=== PATIENT | male | born 1970 | race Caucasian/White ===

== ENCOUNTER 2017-04-06 10:21 | Emergency (ER) | payer OTHER ==
[~2017-04-06] VITALS: Ht 162.6 cm; Wt 79.4 kg
[~2017-04-06 10:21] MED LIST: CHILD IBUP100 MG/5 M PO; TAMIFLU75 M1 PO
--- NOTE | 2017-04-06 11:52 | ED INFLUENZA/URI COMPLAINT ---
History of Present Illness General Chief Complaint: General Adult Stated Complaint: COUGH POS FLU Source: patient Exam Limitations: no limitations Vital Signs & Intake/Output Vital Signs & Intake/Output Vital Signs Date Time Temp Pulse Resp B/P B/P Pulse O2 O2 Flow FiO2 Mean Ox Delivery Rate 04/06 1455 98.7 78 18 120/73 97 Room Air Room Air 04/06 1323 97.9 65 18 129/70 98 Room Air 04/06 1225 99 04/06 1056 98.1 60 18 123/78 96 Room Air Allergies Coded Allergies: NO KNOWN ALLERGIES (02/08/13) Reconcile Medications Albuterol Sulfate (Proair Hfa) 90 MCG HFA.AER.AD 2 PUF INH Q4-6 PRN PRN COUGH/ SOB Azithromycin (Zithromax) 250 MG TABLET 1 DP PO AD BRONCHITIS 2 the first day followed by 1 for days 2-5 Codeine Phosphate/Guaifenesi (Cheratussin AC Syrup) 10 MG-100 MG/5 ML LIQUID 10 ML PO Q6H PRN COUGH Ibuprofen (Child Ibuprofen) 100 MG/5 ML ORAL.SUSP 30 ML PO TID FEVER Methylprednisolone. (Medrol) 4 MG TAB.DS.PK 1 DP PO AD BRONCHITIS 6 on day 1 then reduce by one tablet daily until gone Oseltamivir Phosphate (Tamiflu) 75 MG CAPSULE 1 CAP PO BID FLU Triage Note: PT COMPLAINS OF COUGH AND UNABLE TO BREATHE , STATES THAT HE WAS HERE SUNDAY AND DX WITH FLU, BUT THAT HE STILL HAS NON PRODUCTIVE COUGH Triage Nurses Notes Reviewed? yes Onset: Abrupt Duration: week(s): (1.5), constant, continues in ED, getting worse Timing: single episode today Severity: moderate, severe Prior Episodes/Possible Cause: no prior episodes No Modifying Factors: none Associated Symptoms: cough, nasal congestion, nasal drainage, shortness of breath, sore throat, wheezing HPI: 47-year-old male with no past medical history presents for evaluation of cough, sore throat, body aches and fever. Patient states that he was seen here several days ago and diagnosed with influenza. He was treated with Tamiflu. He states that his symptoms have persisted. He states he now has a sore throat and cough productive of yellow sputum. He states that the cough is making it difficult for him to sleep. He still has body aches but no more fever. He has been able to eat and drink. No chest pain shortness of breath hemoptysis lower extremity edema abdominal pain nausea vomiting diarrhea. He does not smoke no history of COPD or asthma. No dizziness or lightheadedness. Past History Travel History Traveled to [place] past 21 day No Medical History Any Pertinent Medical History? see below for history Neurological: NONE EENT: NONE Cardiovascular: NONE Respiratory: NONE Gastrointestinal: NONE Hepatic: NONE Renal: NONE Musculoskeletal: NONE Psychiatric: NONE Endocrine: NONE Blood Disorders: NONE Cancer(s): NONE TECHNICIAN BIOLOGICAL HEALTH/Reproductive: NONE Tetanus Vaccine: 02/08/13 Surgical History Surgical History: non-contributory Psychosocial History What is your primary language Serbian Tobacco Use: Never used ETOH Use: denies use Illicit Drug Use: denies illicit drug use Family History Hx Contributory? No Review of Systems Review of Systems Constitutional: Reports: malaise. EENTM: Reports: nasal congestion, throat pain. Respiratory: Reports: cough, short of breath, sputum production. Cardiovascular: Reports: no symptoms. GI: Reports: no symptoms. Genitourinary: Reports: no symptoms. Musculoskeletal: Reports: no symptoms. Skin: Reports: no symptoms. Neurological/Psychological: Reports: no symptoms. Hematologic/Endocrine: Reports: no symptoms. Immunologic/Allergic: Reports: no symptoms. All Other Systems: Reviewed and Negative Physical Exam Physical Exam General Appearance: well developed/nourished, no apparent distress, alert, awake Head: atraumatic, normal appearance Eyes: Bilateral: normal appearance, PERRL, EOMI. Ears, Nose, Throat: moist mucous membrane, hearing grossly normal, nasal congestion, nasal drainage (clear), throat is clear Neck: normal inspection, supple, full range of motion Respiratory: chest non-tender, no respiratory distress, wheezing (mild) Cardiovascular: regular rate/rhythm, normal peripheral pulses Peripheral Pulses: 2+ radial (R), 2+ radial (L) Gastrointestinal: soft, non-tender Back: normal inspection, normal range of motion Extremities: normal inspection, normal range of motion Neurologic/Psych: no motor/sensory deficits, awake, alert, oriented x 3 Skin: intact, normal color, warm/dry Core Measures Sepsis Present: No Sepsis Focused Exam Completed? No Progress Differential Diagnosis: influenza, otitis, pneumonia, pharyngitis, sinusitis, acute bronchitis Plan of Care: Orders Procedure Date/time Status XRY-CHEST XRAY, TWO VIEWS 04/06 1058 Active pt seen and evaluated. he has mild wheezing bilaterally. no distress or hypoxia. \he is afebrile and apears clinically well. chest x-ray clear. pt will be treated with proair, z-pack, medrol dose ack and chertussin. follow up with pcp. discussed return precautions in detail. return to the ed with any concerns follow up with pcp. Diagnostic Imaging: Viewed by Me: Radiology Read. Discussed w/RAD: Radiology Read. CXR Impression: PATIENT: SABRINA FRIAS PRESENT AGE: 47 PATIENT ACCOUNT NO: [id number] : 70 LOCATION: [facility] ORDERING PHYSICIAN: Zeb Bailey DO SERVICE DATE: 04/06/17 EXAM TYPE: RAD - XRY-CHEST XRAY, TWO VIEWS EXAMINATION: XR CHEST CLINICAL INFORMATION: Cough/flu COMPARISON : None TECHNIQUE: 2 views of the chest were obtained. FINDINGS: Cardiac silhouette is normal in size. Lungs are well aerated. No lobar consolidation. No gross pleural effusion. No pneumothorax. No acute osseous abnormality. IMPRESSION: No acute cardiopulmonary pathology. DICTATED BY: Chris Santos MD DATE/TIME DICTATED:04/06/171199 ESTHETICIAN SPA:RACHEL DATE/TIME TRANSCRIBED:04/06/171199 CONFIDENTIAL, DO NOT COPY WITHOUT APPROPRIATE AUTHORIZATION. Initial ED EKG: none Departure Departure Disposition: HOME OR SELF CARE Condition: Stable Clinical Impression Primary Impression: Acute bronchitis Qualifiers: Bronchitis organism: unspecified organism Qualified Code: J20.9 - Acute bronchitis, unspecified Referrals: Mary Rhodes MD (PCP/Family) Additional Instructions: Rest and drink plenty of fluids. Tylenol ibuprofen for pain. Take antibiotics and steroids as directed for the full course. Pro-air inhaler can be used every 4-6 hours as needed for cough or shortness of breath. Cheratussin can be use as needed for cough at nighttime only this may cause drowsiness. Use over-the- counter Mucinex or Robitussin for cough during the day. Follow-up with her primary care doctor this week. Monitor symptoms return with any concerns. Please go over all results of today's visit with your primary care doctor. Contact your primary care doctor to let them know you were here in the emergency room. There may be nonspecific findings which may not be related to your visit today here in the emergency room but may require further evaluation and chronic monitoring by your primary care doctor. If you had a laceration today the chance of foreign body always remains. You should follow-up with your primary care doctor for recheck in 3-5 days for a wound check. If you had an x-ray done there is a chance that a fracture could have been missed on initial read and you should follow-up with your primary care doctor for repeat x-rays if symptoms persist. If your blood pressure was elevated here in the emergency room please have rechecked by her primary care doctor within the next 48 hours by your primary care doctor. If you were prescribed a narcotic here in the emergency room or any type of controlled substances you're not allowed to drive while taking this medication or operate any type of heavy machinery. Narcotics can make you feel lightheaded dizziness nausea and can cause constipation. You may need to picker tender helper a stool softener. Thank you for choosing [facility] emergency room. Please return to the emergency room immediately if you have any other concerns worsening of symptoms. Departure Forms: Customer Survey General Discharge Information Prescriptions: Current Visit Scripts Methylprednisolone. (Medrol) 1 DP PO AD #1 DP 6 on day 1 then reduce by one tablet daily until gone Albuterol Sulfate (Proair Hfa) 2 PUF INH Q4-6 PRN PRN COUGH/SOB #1 INHAL Azithromycin (Zithromax) 1 DP PO AD #6 TAB 2 the first day followed by 1 for days 2-5 Codeine Phosphate/Guaifenesi (Cheratussin AC Syrup) 10 ML PO Q6H PRN COUGH #240 ML
--- NOTE | 2017-04-06 14:37 | RADIOLOGY REPORT ---
EXAMINATION: XR CHEST CLINICAL INFORMATION: Cough/flu COMPARISON: None TECHNIQUE: 2 views of the chest were obtained. FINDINGS: Cardiac silhouette is normal in size. Lungs are well aerated. No lobar consolidation. No gross pleural effusion. No pneumothorax. No acute osseous abnormality. IMPRESSION: No acute cardiopulmonary pathology.
[2017-04-06] MEDS ORDERED: MEDROL4 M2 PO (14:40)
[2017-04-06] MEDS ORDERED: ZITHROMAX250 M2 PO (14:40)
[2017-04-06] MEDS ORDERED: PROAIR HFA8.5 GM INH (14:40)
[2017-04-06] MEDS ORDERED: CHERATUSSIN AC118 M1 PO (14:41)
[2017-04-06 14:55] VITALS: BP 120/73
== END 2017-04-06 14:54 ==
LOC: ERH 10:21
DX: J20.9 Acute bronchitis, unspecified (principal)
CPT/HCPCS: 1263; 71046